=== PATIENT | male | born 1990 | race Caucasian/White ===

== ENCOUNTER 2018-07-27 18:27 | Emergency (ER) | payer OTHER ==
[~2018-07-27] VITALS: Ht 165.1 cm; Wt 72.6 kg
[2018-07-27 18:41] VITALS: Ht 165.1 cm; Wt 72.6 kg
[2018-07-27 20:06] VITALS: BP 137/69
== END 2018-07-27 20:06 | disposition home or self-care (01) ==
LOC: ED 18:27
DX: S81.812A Laceration without foreign body, left lower leg, initial encounter (principal); W22.8XXA Striking against or struck by other objects, initial encounter; Y93.89 Activity, other specified; Y92.89 Other specified places as the place of occurrence of the external cause; Y99.0 Civilian activity done for income or pay